=== PATIENT | male | born 1970 | race Caucasian/White ===

== ENCOUNTER 2024-06-03 10:53 | Inpatient (IN) ==
[2024-06-03 12:23] LABS: ABS Basophils 0.1 10^3/uL (0.0-0.1); ABS Lymphocytes 0.5 10^3/uL (1.0-4.8); ABS Monocytes 0.8 10^3/uL (0.0-1.1); ABS Neutrophils 8.4 10^3/uL (1.5-7.6); ABS Nucleated RBC 0.01 10^3/ul; Eosinophil % 0.3 %; Hematocrit 30.8 % (38-53); Hemoglobin 10.4 g/dL (13.2-16.3); Lymphocyte % 5.5 %; Mean Corpuscular Hemoglobin 32.8 pg (27-33); Mean Corpuscular Hgb Conc 33.7 g/dL (31-36); Mean Corpuscular Volume 97.5 fL (80-97); Mean Platelet Volume 7.6 fL (7.5-11.2); Nucleated Red Blood Cells % 0.1 %/100WBC (0.0-0.8); Platelet Count 577 10^3/uL (150-450); Red Blood Count 3.16 10^6/uL (4.06-5.63); Red Cell Distribution Width 16.5 % (12-17)
[2024-06-03 13:11] LABS: Albumin 2.9 g/dL (3.5-5.7); Albumin/Globulin Ratio 1.1 (1-3); C Reactive Protein 82.26 mg/L (<8.01); Calcium 7.9 mg/dL (8.6-10.3); Creatinine, Serum 0.51 mg/dL (0.67-1.17); Globulin 2.6 g/dL (2-4); Potassium 4.4 mmol/L (3.5-5.0); Total Bilirubin 0.2 mg/dL (0.2-1.0); Total Protein 5.5 g/dL (6.4-8.9); eGFR CKD-EPI 120.5 (>60)
[2024-06-03] MEDS ORDERED: Vancomycin 1,000 MG in NS 0.9% 250 ml 250 ML IVPB SCH (14:00)
[2024-06-03] MEDS: Cefepime 2 GM in Dextrose 2 GM/50 ML BAG IV ONE (14:00)
[2024-06-03] MEDS ORDERED: Vancomycin 1,000 MG in NS 0.9% 250 ml 250 ML IVPB ONE (15:00)
[2024-06-03] MEDS: Iohexol 300 (CONTRAST) 10 ML SDV IV ONE (15:15)
[2024-06-03] MEDS: Vancomycin 1000 MG in NS 0.9% 250 ML IVPB ONE (16:31)
[2024-06-03] MEDS ORDERED: Polyethylene Glycol 3350 BTL 238 GM BTL PO PRN (18:23)
[2024-06-03] MEDS ORDERED: Senna/Docusate 8.6/50 mg (NF) TAB PO PRN (18:23)
[2024-06-03] MEDS ORDERED: Vancomycin per Pharmacy 1 EA NOTE FOLLOW UP SCH (19:00)
[2024-06-03] MEDS: ZOSYN 3.375 GM x ONE DOSE over 30 miuntes IV (20:10)
[2024-06-03] MEDS: Enoxaparin 40 MG/0.4 ML SYR SUBCUT SCH (20:25)
[2024-06-03] MEDS: metroNIDAZOLE IV 500 MG/100ML 500 MG/100 ML BAG IVPB ONE ×2 (20:45→20:49)
[2024-06-03] MEDS: metroNIDAZOLE IV 250 MG/50ML 50 ML IVPB ONE (20:49)
[2024-06-03] MEDS ORDERED: Polyethylene Glycol 3350 17 GM PACKET PO PRN (20:58)
[2024-06-03] MEDS: [UNRECOGNIZED DRUG - REMARK] PO SCH (21:11)
[2024-06-03] MEDS: Ramelteon 8 mg TAB (NF) PO SCH (21:55)
[2024-06-04] MEDS: Vancomycin 1,000 MG in NS 0.9% 250 ml 250 ML IVPB SCH (00:23)
[2024-06-04] MEDS: Vancomycin 1000 MG in NS 0.9% 250 ML IVPB SCH (00:51)
[2024-06-04 05:20] LABS: ABS Basophils 0.1 10^3/uL (0.0-0.1); ABS Eosinophils 0.1 10^3/uL (0.0-0.5); ABS Lymphocytes 0.7 10^3/uL (1.0-4.8); ABS Monocytes 0.7 10^3/uL (0.0-1.1); ABS Neutrophils 5.5 10^3/uL (1.5-7.6); Eosinophil % 1.5 %; Hematocrit 29.9 % (38-53); Hemoglobin 10.2 g/dL (13.2-16.3); Lymphocyte % 10.1 %; Mean Corpuscular Hgb Conc 34.1 g/dL (31-36); Mean Platelet Volume 7.5 fL (7.5-11.2); Platelet Count 536 10^3/uL (150-450); Red Blood Count 3.08 10^6/uL (4.06-5.63); Red Cell Distribution Width 16.3 % (12-17); White Blood Count 7.1 10^3/uL (3.6-10.2)
[2024-06-04] MEDS: ZOSYN 3.375 GM x ONE DOSE over 30 miuntes IV (05:56)
[2024-06-04] MEDS ORDERED: Zosyn per Pharmacy NOTE FOLLOW UP SCH (06:00)
[2024-06-04 06:13] LABS: Albumin 2.9 g/dL (3.5-5.7); Albumin/Globulin Ratio 1.1 (1-3); C Reactive Protein 88.14 mg/L (<8.01); Calcium 8.5 mg/dL (8.6-10.3); Creatinine, Serum 0.64 mg/dL (0.67-1.17); Globulin 2.6 g/dL (2-4); Potassium 4.4 mmol/L (3.5-5.0); Total Bilirubin 0.3 mg/dL (0.2-1.0); Total Protein 5.5 g/dL (6.4-8.9); eGFR CKD-EPI 112.5 (>60)
[2024-06-04 06:27] LABS: TSH Ultra Thyroid Stim Horm 7.4 mcIU/mL (0.34-5.60)
[2024-06-04] MEDS ORDERED: NF: Pancrelipase 36,000 units (NF) PO SCH (08:00)
[2024-06-04] MEDS: Pancrelipase 5,000 units CAP PO SCH (10:20)
[2024-06-04] MEDS: Mirabegron 25 mg ER TAB (NF) PO SCH (10:21)
[2024-06-04] MEDS: Mineral Oil ENEMA 118 ML/BOTTLE BOTTLE PR SCH (11:13)
[2024-06-04] MEDS: ZOSYN 3.375 GM Q8H per EXTENDED INFUSION IV SCH ×2 (11:21→23:03)
[2024-06-04] MEDS: Vancomycin Trough Check NOTE FOLLOW UP ONE (16:44)
[2024-06-04] MEDS ORDERED: ZOSYN 3.375 GM Q8H per EXTENDED INFUSION IV SCH (18:30)
[2024-06-04] MEDS: Vancomycin 750 MG in NS 0.9% 250 ML IVPB SCH (21:09)
[2024-06-04] MEDS: RAMELTEON 8 MG PO SCH (22:05)
[2024-06-05 06:07] LABS: ABS Basophils 0.1 10^3/uL (0.0-0.1); ABS Eosinophils 0.1 10^3/uL (0.0-0.5); ABS Lymphocytes 2.2 10^3/uL (1.0-4.8); ABS Monocytes 0.7 10^3/uL (0.0-1.1); ABS Neutrophils 5.8 10^3/uL (1.5-7.6); ABS Nucleated RBC 0.01 10^3/ul; Eosinophil % 0.9 %; Hematocrit 31.3 % (38-53); Hemoglobin 10.4 g/dL (13.2-16.3); Lymphocyte % 24.6 %; Mean Corpuscular Hemoglobin 33.3 pg (27-33); Mean Corpuscular Hgb Conc 33.2 g/dL (31-36); Mean Corpuscular Volume 100.3 fL (80-97); Mean Platelet Volume 8.5 fL (7.5-11.2); Nucleated Red Blood Cells % 0.1 %/100WBC (0.0-0.8); Platelet Count 374 10^3/uL (150-450); Red Blood Count 3.12 10^6/uL (4.06-5.63); Red Cell Distribution Width 16.4 % (12-17); White Blood Count 8.8 10^3/uL (3.6-10.2)
[2024-06-05] MEDS: ZOSYN 3.375 GM Q8H per EXTENDED INFUSION IV SCH (06:08)
[2024-06-05 06:34] LABS: Calcium 8.2 mg/dL (8.6-10.3); Creatinine, Serum 0.69 mg/dL (0.67-1.17); Potassium 4.6 mmol/L (3.5-5.0)
[2024-06-05] MEDS: Vancomycin 750 MG in NS 0.9% 250 ML IVPB SCH (13:13)
[2024-06-05] MEDS: Vancomycin Trough Check NOTE FOLLOW UP ONE (22:19)
[2024-06-06] MEDS: Vancomycin 750 MG in NS 0.9% 250 ML IVPB SCH (00:40)
[2024-06-06] MEDS ORDERED: Mineral Oil ENEMA 118 ML/BOTTLE BOTTLE PR PRN (07:33)
[2024-06-06] MEDS: D5W 1/2 NS 40 Meq KCL 1000 ml 1,000 ML IV SCH (07:40)
[2024-06-06] MEDS ORDERED: NS 0.9% 1000 ml BAG 1,000 ML IV SCH (07:45)
[2024-06-06] MEDS: Morphine 2 MG/ML SYRINGE IV PRN (13:44)
[2024-06-06] MEDS: Morphine 2 MG/ML SYRINGE ONE (14:48)
[2024-06-06] MEDS: Vancomycin Trough Check NOTE FOLLOW UP ONE (14:48)
[2024-06-06] MEDS: Mineral Oil ENEMA 118 ML/BOTTLE BOTTLE PR SCH (17:07)
[2024-06-07 06:09] LABS: ABS Basophils 0.1 10^3/uL (0.0-0.1); ABS Eosinophils 0.1 10^3/uL (0.0-0.5); ABS Lymphocytes 0.8 10^3/uL (1.0-4.8); ABS Monocytes 0.6 10^3/uL (0.0-1.1); ABS Neutrophils 5.7 10^3/uL (1.5-7.6); Eosinophil % 1.1 %; Hematocrit 30.2 % (38-53); Hemoglobin 10.4 g/dL (13.2-16.3); Lymphocyte % 11.3 %; Mean Corpuscular Hgb Conc 34.4 g/dL (31-36); Mean Corpuscular Volume 96.1 fL (80-97); Mean Platelet Volume 7.4 fL (7.5-11.2); Platelet Count 568 10^3/uL (150-450); Red Blood Count 3.15 10^6/uL (4.06-5.63); Red Cell Distribution Width 16.2 % (12-17); White Blood Count 7.2 10^3/uL (3.6-10.2)
[2024-06-07 06:50] LABS: Calcium 8.2 mg/dL (8.6-10.3); Creatinine, Serum 0.72 mg/dL (0.67-1.17); Potassium 4.8 mmol/L (3.5-5.0); eGFR CKD-EPI 108.6 (>60)
[2024-06-07] MEDS: Vancomycin 1,250 MG in NS 0.9% 250 ml 250 ML IVPB SCH (09:45)
[2024-06-07] MEDS ORDERED: Naloxone 0.4 mg VIAL 0.4 mg/ml 1 ml VIAL IV PRN (14:22)
[2024-06-07] MEDS: Mineral Oil ENEMA 118 ML/BOTTLE BOTTLE PR ONE (16:37)
[2024-06-07] MEDS: Furosemide 20 mg/2 ml IV VIAL IV SLOW PU ONE (20:09)
[2024-06-08] MEDS: Buffered Lidocaine 1% SYRIN 1 ml INTRADERM ONE (10:58)
[2024-06-08] MEDS ORDERED: Bupivacaine 0.25% w/EPI 10 ML SDV ONE (13:36)
[2024-06-08] MEDS ORDERED: Bacitracin OINTMENT TUBE ONE (13:36)
[2024-06-08] MEDS ORDERED: Lidocaine 4% TOPICAL 50 ML TOP.SOLN ONE (14:51)
[2024-06-08] MEDS ORDERED: Midazolam 2 mg/2 ml VIAL 1 mg/ml 2 ml VIAL (2 mg) ONE (16:20)
[2024-06-08] MEDS ORDERED: Rocuronium 50 mg VIAL 10 mg/ml 5 ml VIAL (50 mg) ONE (16:20)
[2024-06-08] MEDS ORDERED: Lidocaine 2% PF 5 ML VIAL ONE (16:20)
[2024-06-08] MEDS ORDERED: Propofol 10 MG/ML 20 ML BTL ONE (16:20)
[2024-06-08] MEDS ORDERED: fentaNYL 100 mcg/2 ml 50 MCG/ML VIAL ONE (16:20)
[2024-06-08] MEDS ORDERED: Ondansetron 4 mg VIAL 2 MG/ML 2 ml VIAL ONE (16:20)
[2024-06-08] MEDS ORDERED: Dexamethasone IV 4 MG/ML VIAL 1 ml VIAL ONE (16:20)
[2024-06-08] MEDS ORDERED: fentaNYL 100 mcg/2 ml 50 MCG/ML VIAL IV PRN (17:17)
[2024-06-08] MEDS ORDERED: Naloxone 0.4 mg VIAL 0.4 mg/ml 1 ml VIAL IV PRN (17:17)
[2024-06-08] MEDS: Lactated Ringers 1000 ml BAG 1,000 ML IV SCH (19:16)
[2024-06-08] MEDS: ZOSYN 3.375 GM Q8H per EXTENDED INFUSION IV SCH (22:35)
[2024-06-09 06:26] LABS: Hematocrit 33.5 % (38-53); Hemoglobin 11.3 g/dL (13.2-16.3); Mean Corpuscular Hemoglobin 32.1 pg (27-33); Mean Corpuscular Hgb Conc 33.6 g/dL (31-36); Mean Corpuscular Volume 95.8 fL (80-97); Mean Platelet Volume 7.7 fL (7.5-11.2); Platelet Count 613 10^3/uL (150-450); Red Cell Distribution Width 15.8 % (12-17); White Blood Count 7.7 10^3/uL (3.6-10.2)
[2024-06-09 07:29] LABS: Calcium 8.5 mg/dL (8.6-10.3); Creatinine, Serum 0.78 mg/dL (0.67-1.17); Potassium 4.8 mmol/L (3.5-5.0)
[2024-06-09] MEDS: Albuterol/Ipratropium NEB.SOL (2.5/0.5 MG) 3 ML NEB.SOLN INH SCH (19:14)
[2024-06-10] MEDS: Albuterol/Ipratropium NEB.SOL (2.5/0.5 MG) 3 ML NEB.SOLN INH ONE (04:49)
[2024-06-10 06:30] LABS: ABS Basophils 0.1 10^3/uL (0.0-0.1); ABS Eosinophils 0.2 10^3/uL (0.0-0.5); ABS Lymphocytes 0.8 10^3/uL (1.0-4.8); ABS Monocytes 0.6 10^3/uL (0.0-1.1); ABS Neutrophils 9.6 10^3/uL (1.5-7.6); Eosinophil % 1.5 %; Hematocrit 31.1 % (38-53); Hemoglobin 10.6 g/dL (13.2-16.3); Lymphocyte % 7.5 %; Mean Corpuscular Volume 96.9 fL (80-97); Mean Platelet Volume 7.9 fL (7.5-11.2); Platelet Count 520 10^3/uL (150-450); Red Blood Count 3.21 10^6/uL (4.06-5.63); Red Cell Distribution Width 16.5 % (12-17); White Blood Count 11.2 10^3/uL (3.6-10.2)
[2024-06-10 06:48] LABS: Calcium 8.3 mg/dL (8.6-10.3); Creatinine, Serum 0.99 mg/dL (0.67-1.17); Potassium 4.4 mmol/L (3.5-5.0); eGFR CKD-EPI 90.5 (>60)
[2024-06-10] MEDS: Senna TAB 8.6 mg TAB PO PRN (08:37)
[2024-06-10 09:44] LABS: Creatinine, Serum 0.92 mg/dL (0.67-1.17); Vancomycin Trough 11.8 mcg/mL; eGFR CKD-EPI 98.9 (>60)
[2024-06-10] MEDS: Vancomycin Trough Check NOTE FOLLOW UP ONE (10:25)
[2024-06-10] MEDS: cefTRIAXone 2 gm/50 mL D5W 2 GM/50 ML BAG IV SCH (13:54)
[2024-06-10] MEDS: Albuterol/Ipratropium NEB.SOL (2.5/0.5 MG) 3 ML NEB.SOLN INH PRN (14:38)
[2024-06-11 06:00] LABS: Hemoglobin 10.1 g/dL (13.2-16.3); Mean Corpuscular Hemoglobin 33.5 pg (27-33); Mean Corpuscular Hgb Conc 34.8 g/dL (31-36); Mean Corpuscular Volume 96.3 fL (80-97); Mean Platelet Volume 7.9 fL (7.5-11.2); Platelet Count 490 10^3/uL (150-450); Red Blood Count 3.01 10^6/uL (4.06-5.63); Red Cell Distribution Width 16.4 % (12-17); White Blood Count 7.7 10^3/uL (3.6-10.2)
[2024-06-11 06:17] LABS: Calcium 8.3 mg/dL (8.6-10.3); Creatinine, Serum 0.89 mg/dL (0.67-1.17); Potassium 4.2 mmol/L (3.5-5.0); eGFR CKD-EPI 101.8 (>60)
[2024-06-13] MEDS: Morphine 2 MG/ML SYRINGE IV PRN (09:45)
[2024-06-14 06:00] LABS: ABS Basophils 0.1 10^3/uL (0.0-0.1); ABS Eosinophils 0.3 10^3/uL (0.0-0.5); ABS Lymphocytes 0.9 10^3/uL (1.0-4.8); ABS Monocytes 0.7 10^3/uL (0.0-1.1); ABS Neutrophils 6.1 10^3/uL (1.5-7.6); Eosinophil % 3.3 %; Hematocrit 30.7 % (38-53); Hemoglobin 10.5 g/dL (13.2-16.3); Lymphocyte % 11.5 %; Mean Corpuscular Hemoglobin 32.7 pg (27-33); Mean Corpuscular Hgb Conc 34.1 g/dL (31-36); Mean Corpuscular Volume 95.8 fL (80-97); Mean Platelet Volume 8.1 fL (7.5-11.2); Platelet Count 476 10^3/uL (150-450); Red Blood Count 3.21 10^6/uL (4.06-5.63); Red Cell Distribution Width 16.7 % (12-17); White Blood Count 8.1 10^3/uL (3.6-10.2)
[2024-06-14 06:27] LABS: C Reactive Protein 20.5 mg/L (<8.01); Calcium 8.1 mg/dL (8.6-10.3); Creatinine, Serum 0.69 mg/dL (0.67-1.17); Potassium 4.3 mmol/L (3.5-5.0)
[2024-06-14] MEDS: Vancomycin Trough Check NOTE FOLLOW UP ONE (11:21)
[2024-06-15] MEDS: Morphine 2 MG/ML SYRINGE IV PRN (12:02)
[2024-06-22] MEDS: Docusate LIQ 100 MG/10 ML UDC PO PRN (10:00)
[2024-06-22 10:10] VITALS: BP 94/61
== END 2024-06-22 13:10 | disposition hospice, home (50) | DRG 515 ==
LOC: ED 10:53 → EDHOLD 10:53 → SUATTDRO 17:32 → OBSVTOIN 17:32 → SSU 06-04 17:30
PROVIDERS: ADMIT Internal Medicine; ATTEND Student in an Organized Health Care Education/Training Program